=== PATIENT | male | born 1980 | race Hispanic/Latino ===

== ENCOUNTER 2019-12-25 20:34 | Emergency (ER) | payer SELFPAY ==
[2019-12-25] MEDS ORDERED: NA CHLORIDE 0.9% 1,000 ML ONE ×2 (21:03→22:18)
[2019-12-25 21:06] LABS: Absolute Lymphocytes (CBC) 1.9 K/uL (0.7-4.9); Basophils % 0.5 % (0-1.3); Hematocrit 41.5 % (39.6-49.0); Lymphocytes % 17.2 % (15.3-44.8); MPV 9.2 fL (7.6-11.3); RBC Red Blood Cell Count 4.72 M/uL (4.33-5.43)
[2019-12-25 21:10] LABS: Protime INR 1.02
[2019-12-25 21:20] LABS: ALT/SGPT 29 U/L (12-78); AST/SGOT 19 U/L (15-37); Albumin 3.8 g/dL (3.4-5.0); Alkaline Phosphatase 115 U/L (45-117); BUN Blood Urea Nitrogen 16 mg/dL (7-18); Bicarbonate 23 mmol/L (21-32); Bilirubin Direct 0.1 mg/dL (0-0.2); Bilirubin Total 0.6 mg/dL (0.2-1.0); Creatine Phosphokinase 323 U/L (39-308); Glucose Level 255 mg/dL (74-106); Lipase 128 U/L (73-393); Magnesium 1.9 mg/dL (1.8-2.4); Potassium 3.3 mmol/L (3.5-5.1); Protein, Total 7.8 g/dL (6.4-8.2); Sodium Level 135 mmol/L (136-145); Troponin (Emerg Dept Use Only) < 0.02 ng/mL (0.0-0.045)
[2019-12-25 21:42] LABS: Urine Blood NEGATIVE (NEG); Urine Glucose 2+ (NEG); Urine Protein NEGATIVE (NEG); Urine pH 5.5 (5.0-7.0)
[2019-12-25 21:48] LABS: Barbiturates NEGATIVE (NEGATIVE); Benzodiazepines NEGATIVE (NEGATIVE); Cocaine NEGATIVE (NEGATIVE); METHAMPHETAM NEGATIVE (NEGATIVE); Methadone NEGATIVE (NEGATIVE); Opiates NEGATIVE (NEGATIVE); Phencyclidine NEGATIVE (NEGATIVE); THC Cannibis NEGATIVE (NEGATIVE)
[2019-12-25] MEDS ORDERED: POTASSIUM 25 MEQ EFFERV TAB ONE (22:13)
--- NOTE | 2019-12-26 01:14 | EDPHYS ---
Physician Documentation [facility] Name: Talat Enriquez Age: 39 yrs Sex: Male : 1980 Arrival Date: 12/25/2019 Time: 20:39 Bed 5 Private MD: ED Physician Hector Sanders HPI: 12/24 21:31 This 39 yrs old Male presents to ER via EMS with complaints of Near Syncope. tw4 21:31 The patient has experienced near-syncope. The patient has experienced near-syncope, tw4 felt dizzy, felt generally weak. Onset: The symptoms/episode began/occurred today. Duration: This was a single episode, that lasted an unknown period of time. Context: the episode(s) was witnessed, by family, son. Associated injury: The patient did not suffer any apparent associated injury. Associated signs and symptoms: The patient has no apparent associated signs or symptoms. The patient has not experienced similar symptoms in the past. Historical: - Allergies: 20:53 No Known Allergies; ea - Home Meds: 20:53 None [Active]; ea - PMHx: 20:53 None; ea - PSHx: 20:53 None; ea - Immunization history:: Adult Immunizations up to date. - Social history:: Smoking status: Patient reports use of chewing tobacco. ROS: 21:31 Constitutional: Negative for fever, chills, and weight loss, Eyes: Negative for injury, tw4 pain, redness, and discharge, Cardiovascular: Negative for chest pain, palpitations, and edema, Respiratory: Negative for shortness of breath, cough, wheezing, and pleuritic chest pain, Abdomen/GI: Negative for abdominal pain, nausea, vomiting, diarrhea, and constipation, Back: Negative for injury and pain, MS/Extremity: Negative for injury and deformity, Skin: Negative for injury, rash, and discoloration. 21:31 Neuro: Positive for altered mental status, dizziness, near syncope, Negative for gait disturbance, headache, hearing loss, numbness, seizure activity, speech changes, syncope, tinnitus, tremor, visual changes. Exam: 21:33 Constitutional: This is a well developed, well nourished patient who is awake, alert, tw4 and in no acute distress. Head/Face: Normocephalic, atraumatic. Chest/axilla: Normal chest wall appearance and motion. Nontender with no deformity. No lesions are appreciated. Cardiovascular: Regular rate and rhythm with a normal S1 and S2. No gallops, murmurs, or rubs. Normal PMI, no JVD. No pulse deficits. Respiratory: Lungs have equal breath sounds bilaterally, clear to auscultation and percussion. No rales, rhonchi or wheezes noted. No increased work of breathing, no retractions or nasal flaring. Abdomen/GI: Soft, non-tender, with normal bowel sounds. No distension or tympany. No guarding or rebound. No evidence of tenderness throughout. Back: No spinal tenderness. No costovertebral tenderness. Full range of motion. MS/ Extremity: Pulses equal, no cyanosis. Neurovascular intact. Full, normal range of motion. Neuro: Awake and alert, GCS 15, oriented to person, place, time, and situation. Cranial nerves II-XII grossly intact. Motor strength 5/5 in all extremities. Sensory grossly intact. Cerebellar exam normal. Normal gait. Vital Signs: 20:42 BP 136 / 113; Pulse 94; Resp 19; Temp 99.3; Pulse Ox 100% on R/A; Weight 81.65 kg; ea Height 5 ft. 5 in. (165.10 cm); 21:28 BP 163 / 99; Pulse 86; Resp 18; Pulse Ox 98% on R/A; ea 22:08 BP 144 / 87; Pulse 89; Resp 17; Pulse Ox 100% on R/A; rv 23:00 BP 151 / 87; Pulse 81; Resp 17; Temp 97.9; Pulse Ox 100% on R/A; rv 12/25 00:00 BP 118 / 81; Pulse 83; Resp 16; Pulse Ox 100% on R/A; ll2 01:00 BP 121 / 88; Pulse 81; Resp 16; Temp 98; Pulse Ox 100% on R/A; rv 12/24 20:42 Body Mass Index 29.95 (81.65 kg, 165.10 cm) ea MDM: 12/24 20:40 Patient medically screened. tw4 12/25 07:00 Data reviewed: vital signs, nurses notes. Data interpreted: Pulse oximetry: tw4 Interpretation: normal. Counseling: I had a detailed discussion with the patient and/or guardian regarding: the historical points, exam findings, and any diagnostic results supporting the discharge/admit diagnosis, lab results, radiology results. Special discussion: I discussed with the patient/guardian in detail that at this point there is no indication for admission to the hospital. It is understood, however, that if the symptoms persist or worsen the patient needs to return immediately for re-evaluation. ED course: Pt states that he feels better after IVF hydration. 12/24 20:42 Order name: UDS tw4 12/24 20:42 Order name: Basic Metabolic Panel tw 12/24 20:42 Order name: CBC with Diff tw 12/24 20:42 Order name: Ckmb tw 12/24 20:42 Order name: CPK tw 12/24 20:42 Order name: Hepatic Function; Complete Time: 21:37 tw 12/24 20:42 Order name: Lipase; Complete Time: 21:37 tw 12/24 20:42 Order name: Magnesium; Complete Time: 21:37 tw 12/24 20:42 Order name: Protime (+inr); Complete Time: 21:37 tw 12/24 20:42 Order name: Ptt, Activated; Complete Time: 21:37 tw 12/24 20:42 Order name: Troponin (emerg Dept Use Only); Complete Time: 21:37 tw4 12/24 20:42 Order name: Urine Drug Screen ED[facility] 12/24 20:42 Order name: Basic Metabolic Panel; Complete Time: 21:37 ED[facility] 12/24 20:42 Order name: CBC with Automated Diff; Complete Time: 21:37 ED[facility] 12/24 20:42 Order name: EKG; Complete Time: 20:42 tw4 12/24 20:42 Order name: Cardiac monitoring; Complete Time: 20:52 tw 12/24 20:42 Order name: EKG - Nurse/Tech; Complete Time: 20:52 tw 12/24 20:42 Order name: IV Saline Lock; Complete Time: 20:52 tw 12/24 20:42 Order name: Labs collected and sent; Complete Time: 20:57 4 12/24 20:42 Order name: NPO; Complete Time: 20:52 tw4 12/24 20:42 Order name: O2 Per Protocol; Complete Time: 20:53 tw4 12/24 20:42 Order name: O2 Sat Monitoring; Complete Time: 20:52 tw4 12/24 20:42 Order name: Urine Dipstick-Ancillary (obtain specimen); Complete Time: 21:33 tw4 12/24 20:42 Order name: CKMB Creatine Kinase MB; Complete Time: 21:37 EDMS 12/24 20:42 Order name: Creatine Phosphokinase; Complete Time: 21:37 EDMS 12/24 21:32 Order name: Urine Dipstick--Ancillary (enter results) ds4 12/24 22:04 Order name: CT Head Brain wo Cont tw4 EC/18 21:33 Rate is 87 beats/min. Rhythm is regular. QRS [place] is Normal. MI interval is normal. QRS tw4 interval is normal. QT interval is normal. No Q waves. T waves are Normal. No ST changes noted. Clinical impression: Normal ECG. Interpreted by me. Reviewed by me. Administered Medications: 20:56 Drug: NS 0.9% 1000 ml Route: IV; Rate: 1 bolus; Site: right antecubital; rv 23:31 Follow up: IV Status: Completed infusion; IV Intake: 1000ml rv 21:57 Drug: Potassium Effervescent Tablet 50 mEq Route: PO; rv 23:31 Follow up: Response: No adverse reaction rv 22:09 Drug: NS 0.9% 1000 ml Route: IV; Rate: 1 bolus; Site: right antecubital; rv 12/25 01:22 Follow up: IV Status: Completed infusion; IV Intake: 1000ml rv Disposition: 12/26/19 01:13 Discharged to Home. Impression: Dehydration, Hypokalemia. - Condition is Stable. - Discharge Instructions: Dehydration, Adult, Potassium Content of Foods, Hypokalemia. - Medication Reconciliation Form, Thank You Letter, Antibiotic Education, Prescription Opioid Use form. - Follow up: Private Physician; When: Upon discharge from the Emergency Department; Reason: Recheck today's complaints, Continuance of care, Re-evaluation by your physician. - Problem is new. - Symptoms have improved. Signatures: Dispatcher [employer] Elinor Marx, RN RN Hector Meyers MD MD tw4 Timbo Rosas RN RN rv Corrections: (The following items were deleted from the chart) 01:13 12/26/2019 01:13 Discharged to Home. Impression: Dehydration; Hypokalemia. rv Condition is Stable. Forms are Medication Reconciliation Form, Thank You Letter, Antibiotic Education, Prescription Opioid Use. Follow up: Private Physician; When: Upon discharge from the Emergency Department; Reason: Recheck today's complaints, Continuance of care, Re-evaluation by your physician. Problem is new. Symptoms have improved. tw4
--- NOTE | 2019-12-26 01:14 | ER ---
Nurse's Notes [facility] Name: Talat Enriquez Age: 39 yrs Sex: Male : 1980 Arrival Date: 12/25/2019 Time: 20:39 Bed 5 Private MD: Diagnosis: Dehydration;Hypokalemia Presentation: 12/24 20:42 Chief complaint: EMS states: Pt reports he was "painting tanks" since noon. Reports he ea started feeling dizzy and disoriented. Reports this AM he started having dark stools. EMS reports pt was A \\T\\ O x 4 on scene BGL 281, 18 G to RAC initiated per EMS. Coronavirus screen: At this time, the client does not indicate any symptoms associated with coronavirus-19. Ebola Screen: No symptoms or risks identified at this time. Initial Sepsis Screen: Does the patient meet any 2 criteria? No. Patient's initial sepsis screen is negative. Does the patient have a suspected source of infection? No. Patient's initial sepsis screen is negative. Risk Assessment: Do you want to hurt yourself or someone else? Patient reports no desire to harm self or others. Onset of symptoms was December 25, 2019. 20:42 Method Of Arrival: EMS: [facility] ea 20:42 Acuity: ARELIS 3 ea Historical: - Allergies: 20:53 No Known Allergies; ea - Home Meds: 20:53 None [Active]; ea - PMHx: 20:53 None; ea - PSHx: 20:53 None; ea - Immunization history:: Adult Immunizations up to date. - Social history:: Smoking status: Patient reports use of chewing tobacco. Screenin:52 Abuse screen: Denies threats or abuse. Nutritional screening: No deficits noted. ea Tuberculosis screening: No symptoms or risk factors identified. Fall Risk IV access (20 points). Assessment: 20:57 General: Appears ill, Behavior is calm, cooperative. Pain: Denies pain. Neuro: Level of rv Consciousness is awake, alert, obeys commands, Oriented to person, place, time, situation, Reports dizziness, photophobia. Cardiovascular: Patient's skin is warm and dry. Rhythm is sinus rhythm. Respiratory: Airway is patent Respiratory effort is even, unlabored, Breath sounds are clear bilaterally. Derm: Skin is intact. 20:58 EENT: Eyes TEARS ON BOTH EYES (CRYING). PHOTOPHOBIC.. rv 22:07 Reassessment: PATIENT COMPLAINING OF SPEECH PROBLEM-STUTTERING, AND TINGLING SENSATION rv ON THE LEFT SIDE. REFERRED TO DR KRUSE. NEW ORDERS RECEIVED. PATIENT IS FOR CT SCAN. Neuro: Level of Consciousness is awake, alert, obeys commands, Oriented to person, place, time, situation, Moves all extremities. Full function Speech is normal, Facial symmetry appears normal. 12/25 00:36 Reassessment: Patient and/or family updated on plan of care and expected duration. Pain ll2 level reassessed. Patient is alert, oriented x 3, equal unlabored respirations, skin warm/dry/pink. Vital Signs: 12/24 20:42 BP 136 / 113; Pulse 94; Resp 19; Temp 99.3; Pulse Ox 100% on R/A; Weight 81.65 kg; ea Height 5 ft. 5 in. (165.10 cm); 21:28 BP 163 / 99; Pulse 86; Resp 18; Pulse Ox 98% on R/A; ea 22:08 BP 144 / 87; Pulse 89; Resp 17; Pulse Ox 100% on R/A; rv 23:00 BP 151 / 87; Pulse 81; Resp 17; Temp 97.9; Pulse Ox 100% on R/A; rv 12/25 00:00 BP 118 / 81; Pulse 83; Resp 16; Pulse Ox 100% on R/A; ll2 01:00 BP 121 / 88; Pulse 81; Resp 16; Temp 98; Pulse Ox 100% on R/A; rv 12/24 20:42 Body Mass Index 29.95 (81.65 kg, 165.10 cm) ea ED Course: 12/24 20:39 Patient arrived in ED. ar5 20:40 Hector Kruse MD is Attending Physician. tw4 20:48 Timbo Rosas RN is Primary Nurse. rv 20:52 Triage completed. ea 20:52 Arm band placed on right wrist. Patient placed in an exam room, on a stretcher, on ea pulse oximetry. 20:52 Patient has correct armband on for positive identification. Placed in gown. Bed in low ea position. Call light in reach. Side rails up X2. 20:57 Maintain EMS IV. Dressing intact. Good blood return noted. Site clean \\T\\ dry. Gauge \\T\\ rv site: g20 RIGHT AC. 21:33 UDS Sent. ds4 22:58 CT Head Brain wo Cont In Process Unspecified. EDMS 12/25 01:21 No provider procedures requiring assistance completed. IV discontinued, intact, rv bleeding controlled, No redness/swelling at site. Pressure dressing applied. Administered Medications: 12/24 20:56 Drug: NS 0.9% 1000 ml Route: IV; Rate: 1 bolus; Site: right antecubital; rv 23:31 Follow up: IV Status: Completed infusion; IV Intake: 1000ml rv 21:57 Drug: Potassium Effervescent Tablet 50 mEq Route: PO; rv 23:31 Follow up: Response: No adverse reaction rv 22:09 Drug: NS 0.9% 1000 ml Route: IV; Rate: 1 bolus; Site: right antecubital; rv 12/25 01:22 Follow up: IV Status: Completed infusion; IV Intake: 1000ml rv Intake: 12/24 23:31 IV: 1000ml; Total: 1000ml. rv 12/25 01:22 IV: 1000ml; Total: 2000ml. rv Outcome: 01:13 Discharge ordered by . tw4 01:22 Discharged to home ambulatory, with family. rv 01:22 Condition: good 01:22 Discharge instructions given to patient, Instructed on discharge instructions, follow up and referral plans. Demonstrated understanding of instructions, follow-up care. 01:22 Patient left the ED. rv Signatures: Dispatcher [employer] EDMS Bruce Bernal ds4 Elinor Lee RN Hector Patel ea, MD MD tw4 Timbo Rosas RN RN Suzanne Humphrey ar5 Marita Bullock, RN RN ll2 Corrections: (The following items were deleted from the chart) 12/24 23:33 23:00 BP 151 / 87; Pulse 81bpm; Resp 17bpm; Pulse Ox 100% RA; rv rv
[2019-12-26 01:31] VITALS: O2SAT 100
[2019-12-26 01:35] VITALS: BP 121/88; TEMP 98
--- NOTE | 2019-12-26 14:20 | RAD REPORT ---
EXAM DESCRIPTION: CT - Head Brain Wo Cont - 12/26/2019 6:53 am CLINICAL HISTORY: Confused; declining state COMPARISON: None available TECHNIQUE: Axial CT of the head obtained from the skull apex to the skull base without contrast. FINDINGS: No acute intracranial hemorrhage identified. No mass, mass effect, shift of the midline, a bnormal extra-axial fluid collection or CT evidence of acute ischemic change identified. The ventricu lar system is unremarkable. No acute abnormalities of the supratentorial white matter, basal gangli a, cerebellum, or brainstem. The visualized paranasal sinuses and the mastoids are relatively well aerated. No skull fracture id entified. Visualized orbits and globes are unremarkable. IMPRESSION: 1. No acute intracranial abnormality identified. This exam was performed according to our departmental dose-optimization program, which includes autom ated exposure control, adjustment of the mA and/or kV according to patient size and/or use of iterati ve reconstruction technique. Electronically signed by: Juan Timmons 12/25/2019 11:10 PM CDT Due to temporary technical issues with the PACS/Fluency reporting system, reports are being signed by the in house radiologist without review as a courtesy to ensure prompt reporting. The interpreting r adiologist is fully responsible for the content of the report.
== END 2019-12-26 01:22 | disposition home or self-care (01) ==
LOC: ER 20:34
DX: E86.0 Dehydration (principal); E87.6 Hypokalemia; F17.220 Nicotine dependence, chewing tobacco, uncomplicated
CPT/HCPCS: 36415; 70450; 80048; 80076; 80307; 81003; 82550; 82553; 83690; 83735; 84484; 85025; 85610; 85730; 93005; 96360; 96361; 99284; J7030